=== PATIENT | male | born 1970 | race Caucasian/White ===

== ENCOUNTER 2022-07-11 07:09 | Emergency (ER) | payer BC ==
[2022-07-11 07:48] VITALS: BP 144/89; PULSE 76; RESP 18; TEMP 98.3; BMI 31.4
[2022-07-11] MEDS ORDERED: SODIUM CHLORIDE 0.9% 500 ML INFUS.BAG IV ONE (08:41)
[2022-07-11 09:21] LABS: BASO % 0.7 % (0-2.0); EOS % 2.7 % (0-4.5); HEMOGLOBIN 14.4 GM/dL (11.7-16.9); LYMPH % 25.5 % (8-40); MCH 30.5 pg (25.7-33.7); MEAN CELL VOLUME 87.2 fl (80-96); MEAN PLT VOLUME 6.8 fl (7.5-11.1); NEUT % 61.1 % (42.8-82.8); PLATELET COUNT 205 10^3/uL (134-434); RBC 4.71 M/mm3 (4.00-5.60); RDW 13.1 % (11.9-15.9); WHITE BLOOD COUNT 4.1 K/mm3 (4.0-10.0)
[2022-07-11 09:42] LABS: BLOOD UREA NITROGEN 15.5 mg/dL (7-18); MAGNESIUM 2.4 mg/dL (1.8-2.4)
[2022-07-11 09:43] LABS: ALBUMIN 3.9 g/dl (3.4-5.0)
[2022-07-11 09:45] LABS: CREATININE 0.6 mg/dL (0.55-1.3)
[2022-07-11 09:47] LABS: BILIRUBIN,TOTAL 0.8 mg/dL (0.2-1); TOT PROT 6.9 g/dl (6.4-8.2)
== END 2022-07-11 10:34 | disposition home or self-care (01) ==
LOC: JER 07:09
DX: R53.1 Weakness (principal)
CPT/HCPCS: 36415; 80053; 83735; 84484; 85025; 93005; 93010; 99283-25